=== PATIENT | female | born 2005 | race Caucasian/White ===

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

== ENCOUNTER → 2025-01-01 09:04 | Outpatient (BNVA) | payer MEDICAID, SELFPAY | PROVIDERS: Visit Provider Obstetrics & Gynecology | DX: O30.032 Twin pregnancy, monochorionic/diamniotic, second trimester (principal); O09.92 Supervision of high risk pregnancy, unspecified, second trimester; Z3A.28 28 weeks gestation of pregnancy | CPT/HCPCS: 82950; 84315; 85025 ==